=== PATIENT | male | born 1970 | race African-American/Black ===

== ENCOUNTER 2019-12-04 17:33 | Emergency (ER) | payer BC ==
[~2019-12-04] VITALS: Ht 190.5 cm; Wt 122.5 kg
[2019-12-04 17:51] VITALS: BP 178/99
[2019-12-04] MEDS ORDERED: NOHOMEMEDICATIONS (18:21)
[2019-12-04] MEDS ORDERED: MOBIC15 MG PO (18:51)
[2019-12-04] MEDS ORDERED: FLEXERIL PO (18:51)
== END 2019-12-04 19:14 | disposition home or self-care (01) ==
LOC: ER 17:33
DX: S39.012A Strain of muscle, fascia and tendon of lower back, initial encounter (principal); Z20.828 Contact with and (suspected) exposure to other viral communicable diseases; X50.1XXA Overexertion from prolonged static or awkward postures, initial encounter; Y93.89 Activity, other specified; Y92.89 Other specified places as the place of occurrence of the external cause; Y99.8 Other external cause status

== ENCOUNTER 2020-10-26 19:03 | Emergency (ER) | payer BC ==
[~2020-10-26] VITALS: Ht 193 cm; Wt 124.7 kg
[~2020-10-26 19:03] MED LIST: FLEXERIL PO; MOBIC15 MG PO; NOHOMEMEDICATIONS
[2020-10-26] MEDS ORDERED: MOBIC15 MG PO (20:33)
[2020-10-26 20:38] VITALS: BP 188/109
== END 2020-10-26 20:38 | disposition home or self-care (01) ==
LOC: ER 19:03
DX: S39.012A Strain of muscle, fascia and tendon of lower back, initial encounter (principal); X58.XXXA Exposure to other specified factors, initial encounter; Y93.89 Activity, other specified; Y92.89 Other specified places as the place of occurrence of the external cause; Y99.8 Other external cause status

== ENCOUNTER 2020-10-28 19:08 | Emergency (ER) | payer BC ==
[~2020-10-28] VITALS: Ht 182.9 cm; Wt 124.7 kg
[2020-10-28 21:25] LABS: URINE BILIRUBIN NEGATIVE (Negative); URINE BLOOD TRACE (Negative); URINE CLARITY SL CLOUDY; URINE COLOR YELLOW; URINE GLUCOSE-RANDOM* NEGATIVE (Negative); URINE KETONES NEGATIVE (Negative); URINE LEUKOCYTES-REFLEX NEGATIVE (Negative); URINE NITRITE-REFLEX NEGATIVE (Negative); URINE PROTEIN (DIPSTICK) NEGATIVE (Negative); URINE UROBILINOGEN 0.2 E.U./dl (0.2-1.0)
[2020-10-28 22:42] LABS: ABSOLUTE NEUTROPHILS 6.5 thou/uL (1.4-8.2); BASOPHILS 0.4 % (0.0-2.0); EOSINOPHILS 0.4 % (0.0-3.0); HEMATOCRIT 45.5 % (42.0-52.0); HEMOGLOBIN 15.6 gm/dL (14.0-18.0); LYMPHOCYTES 11.4 % (24.0-44.0); MCH 28.3 pg (26.0-34.0); MCHC 34.2 g/dL (28.0-37.0); MCV 82.8 fL (80.0-100.0); PLATELET COUNT 191 thou/uL (150-400); POLYS 72.8 % (36.0-66.0); RDW 14.4 % (10.5-14.5); WBC 8.9 thou/uL (4.0-11.0)
[2020-10-28 22:45] LABS: CALCIUM 9.2 mg/dL (8.5-10.1); CREATININE 1.2 mg/dL (0.7-1.3)
[2020-10-28] MEDS ORDERED: MEDROLDOSEPACK PO (22:52)
[2020-10-28] MEDS ORDERED: FLEXERIL PO (22:52)
[2020-10-28 23:26] VITALS: BP 185/110
== END 2020-10-28 23:28 | disposition home or self-care (01) ==
LOC: ER 19:08
PROVIDERS: Emergency Medicine
DX: M54.5 Low back pain (principal)

== ENCOUNTER 2020-11-13 00:58 | Inpatient (IN) | payer BC ==
[~2020-11-13] VITALS: Ht 182.9 cm; Wt 121.1 kg
[~2020-11-13 00:58] MED LIST changes: +MEDROLDOSEPACK PO
[2020-11-13 01:06] VITALS: BP 182/124
[2020-11-13 02:29] LABS: ABSOLUTE NEUTROPHILS 16.7 thou/uL (1.4-8.2); BASOPHILS 0.1 % (0.0-2.0); HEMATOCRIT 49.8 % (42.0-52.0); HEMOGLOBIN 16.6 gm/dL (14.0-18.0); LYMPHOCYTES 1.6 % (24.0-44.0); MCH 27.9 pg (26.0-34.0); MCHC 33.3 g/dL (28.0-37.0); MCV 83.9 fL (80.0-100.0); MONOCYTES 2.3 % (1.0-8.0); PLATELET COUNT 310 thou/uL (150-400); RBC 5.94 mil/uL (4.50-6.00); RDW 15.3 % (10.5-14.5); WBC 17.4 thou/uL (4.0-11.0)
[2020-11-13 02:33] LABS: CALCIUM 9.7 mg/dL (8.5-10.1); CREATININE 1.2 mg/dL (0.7-1.3); POTASSIUM 3.9 mmol/L (3.5-5.1)
[2020-11-13 02:40] LABS: ALBUMIN 3.7 g/dL (3.4-5.0); DIRECT BILIRUBIN 0.1 mg/dL (<0.1-0.2); TOTAL BILIRUBIN 0.7 mg/dL (0.2-1.0); TOTAL PROTEIN 8.2 g/dL (6.4-8.2)
--- NOTE | 2020-11-13 07:12 | NUR ---
TOOK OVER CARE AT THIS TIME
--- NOTE | 2020-11-13 11:56 | NUR ---
PT MOVED TO ED ROOM 17 AT THIS TIME. VSS ON RA. NO ACUTE CHANGES. PT STABLE AT BASELINE. REPORT GIVEN TO CRISS CLARK AT THIS TIME
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
[2020-11-13 23:18] VITALS: BP 140/79
[2020-11-14 01:01] VITALS: BP 147/99
--- NOTE | 2020-11-14 02:32 | NUR ---
PT ARRIVED ON THE UNIT AT 2335. PT IS ALERT AND ORIENTED X4. PT IS UP AD SUSHILA. PT DENIED ANY FORM OF N/V. PT DID NOT C/O PAIN. PT WAS ORIENTED TO THE ROOM. PT HAD AN IV IN THE LAC WITH TRANSPARENT DRESSING WHICH WAS DRY AMD INTACT WITH NO SIGN OF REDNESS OR INFILTRATION. PT'S VS ARE STABLE. PT IS ON TELE. PT HAD A SHOWER. PT DID NOT EXPRESS ANY CONCERNS AND NO VISIBLE SIGN OF DISTRESS WAS NOTED. WILL CONTINUE TO MONITOR.
[2020-11-14 04:58] LABS: HEMATOCRIT 43.2 % (42.0-52.0); MCH 28.1 pg (26.0-34.0); MCHC 33.6 g/dL (28.0-37.0); MCV 83.7 fL (80.0-100.0); RBC 5.16 mil/uL (4.50-6.00); RDW 15.4 % (10.5-14.5); WBC 10.9 thou/uL (4.0-11.0)
[2020-11-14 05:06] LABS: HEMOGLOBIN 14.5 gm/dL (14.0-18.0)
[2020-11-14 05:24] LABS: ALBUMIN 2.9 g/dL (3.4-5.0); CALCIUM 8.4 mg/dL (8.5-10.1); CREATININE 1.2 mg/dL (0.7-1.3); PHOSPHORUS 3.4 mg/dL (2.5-4.9); POTASSIUM 3.6 mmol/L (3.5-5.1)
[2020-11-14 06:56] VITALS: BP 163/103
[2020-11-14 07:47] VITALS: BP 168/120
[2020-11-14] MEDS ORDERED: CLONIDINE HCL0.3 M3 PO (10:47)
[2020-11-14 14:26] VITALS: BP 168/120
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
--- NOTE | 2020-11-14 17:18 | NUR ---
D/c teaching completed with patient. Clonidine sent to his pharmacy. No current pain. AD SUSHILA. Left forearm IV removed-gauze and pressure appiled. He wanted to walk to his car with his .
== END 2020-11-14 17:50 | disposition home or self-care (01) | DRG 390 ==
LOC: ER 00:58 → EROBS 05:36 → 4W 23:28
PROVIDERS: Emergency Medicine; ADMIT Hospitalist; ATTEND Hospitalist
DX: K56.609 Unspecified intestinal obstruction, unspecified as to partial versus complete obstruction (principal); I10 Essential (primary) hypertension; D72.829 Elevated white blood cell count, unspecified; R73.9 Hyperglycemia, unspecified; M54.9 Dorsalgia, unspecified; G89.29 Other chronic pain
CPT/HCPCS: 10045